=== PATIENT | female | born 1965 | race Caucasian/White ===

== ENCOUNTER 2022-10-24 15:59 | Inpatient (IN) | payer OTHER ==
[2022-10-24] MEDS ORDERED: methylPREDNISolone Sod Succ/PF 125 MG/2 ML VIAL ONE (17:03)
[2022-10-24] MEDS ORDERED: Magnesium 2 GM/50 ML BAG (IN WATER) ONE (17:03)
[2022-10-24 17:11] LABS: #Basophils 0.1 10x3/uL (0.0-0.2); #Eosinphils 0.3 10x3/uL (0.0-0.5); #Neutrophils 5.5 10x3/uL (1.5-8.4); %Basophils 0.7 % (0.0-2.0); %Eosinophils 2.7 % (0.0-6.0); %Lymphocytes 28.1 % (18.0-47.0); %Monocytes 10.6 % (0.0-10.0); %Neutrophils 57.4 % (40.0-75.0); Hemoglobin 14.3 g/dL (12.0-15.5); Mean Corpuscular HGB CONC 33.2 g/dL (32.0-36.0); Mean Corpuscular Hemoglobin 32.8 pg (27.0-33.0); Mean Corpuscular Volume 98.9 fl (81.6-98.3); Mean Platelet Volume 12.1 fl (7.4-10.4); Platelet Count 151 10x3/uL (150-450); RBC Distribution Width 13.6 % (11.5-14.5); Red Blood Cell (RBC) Count 4.36 10x6/uL (3.90-5.03); White Blood Cell (WBC) Count 9.6 10x3/uL (3.5-10.5)
[2022-10-24 17:24] LABS: ALT (SGPT) 33 U/L (8-55); AST (SGOT) 42 U/L (5-34); Albumin 3.9 g/dL (3.5-5.0); Alkaline Phosphatase 121 U/L (40-110); Anion Gap 16 mmol/L (10-20); BUN (Urea Nitrogen) 15 mg/dL (9.8-20.1); Calc. Creatinine Clearance 0 mL/min (70-130); Calcium 9.1 mg/dL (7.8-10.44); Carbon Dioxide 26 mmol/L (22-29); Chloride 100 mmol/L (98-107); Estimated GFR 90; Globulin 3.1 g/dL (2.4-3.5); Glucose 127 mg/dL (70-105); Lipase 10 U/L (8-78); Potassium 4.5 mmol/L (3.5-5.1); Sodium 137 mmol/L (136-145)
[2022-10-24 17:40] LABS: SARS-CoV-2 NAA Rapid Test Not Detected (NotDetected)
[2022-10-24] MEDS ORDERED: Acetaminophen 325 MG TAB PO PRN (17:57)
[2022-10-24] MEDS ORDERED: Ondansetron PF 4 MG/2 ML Vial IVP PRN (17:57)
[2022-10-24] MEDS ORDERED: Ondansetron ODT 4 MG TAB PO PRN (17:57)
[2022-10-24] MEDS ORDERED: Benzonatate 100 MG CAP PO PRN (18:03)
[2022-10-24] MEDS ORDERED: Enoxaparin Sodium 40 MG/0.4 ML SYRINGE SC SCH (22:00)
[2022-10-24] MEDS ORDERED: guaiFENesin ER 600 MG TAB PO SCH (22:00)
[2022-10-25] MEDS ORDERED: methylPREDNISolone Sod Succ 40 MG VIAL ONE ×3 (00:01→12:02)
[2022-10-25] MEDS ORDERED: Nicotine 14 MG PATCH ONE (00:02)
[2022-10-25] MEDS ORDERED: Enoxaparin Sodium 40 MG/0.4 ML SYRINGE ONE (00:02)
[2022-10-25] MEDS: methylPREDNISolone Sod Succ 40 MG VIAL IVP SCH ×4 (00:05→16:55)
[2022-10-25] MEDS: Nicotine 14 MG PATCH TD SCH ×2 (00:05→16:55)
[2022-10-25] MEDS ORDERED: Hydroxychloroquine Sulfate 200 MG TAB PO SCH (01:00)
[2022-10-25] MEDS ORDERED: DULoxetine 30 MG CAP PO SCH (01:00)
[2022-10-25] MEDS ORDERED: Acetaminophen/Codeine 30-300mg Tablet ONE ×2 (01:07→14:12)
[2022-10-25] MEDS: Acetaminophen/Codeine 30-300mg Tablet PO PRN ×2 (01:13→14:22)
[2022-10-25 03:55] LABS: Hemoglobin 14.1 g/dL (12.0-15.5); Mean Corpuscular HGB CONC 33.9 g/dL (32.0-36.0); Mean Corpuscular Hemoglobin 33.1 pg (27.0-33.0); Mean Corpuscular Volume 97.7 fl (81.6-98.3); Mean Platelet Volume 12.1 fl (7.4-10.4); Platelet Count 140 10x3/uL (150-450); RBC Distribution Width 13.3 % (11.5-14.5); Red Blood Cell (RBC) Count 4.26 10x6/uL (3.90-5.03); White Blood Cell (WBC) Count 6.1 10x3/uL (3.5-10.5)
[2022-10-25 04:04] LABS: MDiff Complete? YES; Platelet Morphology Comment Appears Decreased
[2022-10-25 04:14] LABS: Anion Gap 18 mmol/L (10-20); BUN (Urea Nitrogen) 16 mg/dL (9.8-20.1); Calc. Creatinine Clearance 0 mL/min (70-130); Calcium 8.9 mg/dL (7.8-10.44); Carbon Dioxide 21 mmol/L (22-29); Chloride 100 mmol/L (98-107); Estimated GFR 85; Glucose 301 mg/dL (70-105); Potassium 4.7 mmol/L (3.5-5.1); Sodium 134 mmol/L (136-145)
[2022-10-25 04:29] LABS: Band 1 % (5-11); Lymphocytes 21 % (21-51); Monocytes 2 % (0-10); Neutrophil 76 % (42-75)
[2022-10-25] MEDS: DULoxetine 30 MG CAP PO SCH ×2 (09:15→20:45)
[2022-10-25] MEDS: guaiFENesin ER 600 MG TAB PO SCH ×2 (09:15→20:54)
[2022-10-25] MEDS: Hydroxychloroquine Sulfate 200 MG TAB PO SCH ×2 (09:15→20:47)
[2022-10-25 15:03] VITALS: BMI 49.1
[2022-10-25] MEDS ORDERED: ALPRAZolam 1 MG TAB PO SCH (15:30)
[2022-10-25] MEDS ORDERED: Cyclobenzaprine 10 MG TAB PO PRN (15:48)
[2022-10-25] MEDS ORDERED: ALPRAZolam 1 MG TAB PO PRN (15:48)
[2022-10-25] MEDS ORDERED: hydrOXYzine 25 MG TAB PO PRN (15:48)
[2022-10-25] MEDS ORDERED: traMADol HCl 50 MG TAB PO PRN (15:48)
[2022-10-25] MEDS ORDERED: Benzonatate 100 MG CAP PO PRN (16:06)
[2022-10-25] MEDS: Gabapentin 400 MG CAP PO SCH (20:46)
[2022-10-25] MEDS: traZODone HCl 50 MG TAB PO SCH (20:46)
[2022-10-25] MEDS: CeleCOXIB 100 MG CAP PO SCH (20:47)
[2022-10-25] MEDS: Allopurinol 300 MG TAB PO SCH (20:47)
[2022-10-26] MEDS: methylPREDNISolone Sod Succ 40 MG VIAL IVP SCH ×4 (01:51→21:54)
[2022-10-26 05:48] LABS: #Monocytes 0.5 10x3/uL (0.0-1.1); #Neutrophils 9.9 10x3/uL (1.5-8.4); %Basophils 0.1 % (0.0-2.0); %Lymphocytes 9.7 % (18.0-47.0); %Monocytes 3.9 % (0.0-10.0); %Neutrophils 85.9 % (40.0-75.0); Hemoglobin 14.1 g/dL (12.0-15.5); Mean Corpuscular HGB CONC 34.6 g/dL (32.0-36.0); Mean Corpuscular Hemoglobin 33.2 pg (27.0-33.0); Mean Platelet Volume 11.6 fl (7.4-10.4); Platelet Count 180 10x3/uL (150-450); RBC Distribution Width 13.2 % (11.5-14.5); Red Blood Cell (RBC) Count 4.25 10x6/uL (3.90-5.03); White Blood Cell (WBC) Count 11.5 10x3/uL (3.5-10.5)
[2022-10-26 05:49] LABS: Anion Gap 16 mmol/L (10-20); BUN (Urea Nitrogen) 20 mg/dL (9.8-20.1); Calc. Creatinine Clearance 127 mL/min (70-130); Carbon Dioxide 25 mmol/L (22-29); Chloride 99 mmol/L (98-107); Estimated GFR 89; Glucose 298 mg/dL (70-105); Potassium 4.9 mmol/L (3.5-5.1); Sodium 135 mmol/L (136-145)
[2022-10-26] MEDS: CeleCOXIB 100 MG CAP PO SCH ×2 (08:27→21:52)
[2022-10-26] MEDS: Gabapentin 400 MG CAP PO SCH ×3 (08:27→21:53)
[2022-10-26] MEDS: Allopurinol 300 MG TAB PO SCH ×2 (08:28→21:52)
[2022-10-26] MEDS: guaiFENesin ER 600 MG TAB PO SCH ×2 (08:28→21:53)
[2022-10-26] MEDS: Hydroxychloroquine Sulfate 200 MG TAB PO SCH ×2 (08:28→21:53)
[2022-10-26] MEDS: DULoxetine 30 MG CAP PO SCH ×2 (08:28→21:52)
[2022-10-26] MEDS: Nicotine 14 MG PATCH TD SCH (18:09)
[2022-10-26] MEDS: traZODone HCl 50 MG TAB PO SCH (21:53)
[2022-10-27 05:02] LABS: #Monocytes 0.5 10x3/uL (0.0-1.1); #Neutrophils 8.7 10x3/uL (1.5-8.4); %Basophils 0.2 % (0.0-2.0); %Lymphocytes 8.9 % (18.0-47.0); %Monocytes 5.2 % (0.0-10.0); %Neutrophils 84.8 % (40.0-75.0); Hemoglobin 13.4 g/dL (12.0-15.5); Mean Corpuscular HGB CONC 33.6 g/dL (32.0-36.0); Mean Corpuscular Hemoglobin 32.6 pg (27.0-33.0); Mean Corpuscular Volume 97.1 fl (81.6-98.3); Mean Platelet Volume 11.6 fl (7.4-10.4); Platelet Count 190 10x3/uL (150-450); RBC Distribution Width 13.2 % (11.5-14.5); Red Blood Cell (RBC) Count 4.11 10x6/uL (3.90-5.03); White Blood Cell (WBC) Count 10.3 10x3/uL (3.5-10.5)
[2022-10-27 05:09] LABS: Anion Gap 18 mmol/L (10-20); BUN (Urea Nitrogen) 25 mg/dL (9.8-20.1); Calc. Creatinine Clearance 102 mL/min (70-130); Calcium 8.6 mg/dL (7.8-10.44); Carbon Dioxide 23 mmol/L (22-29); Chloride 99 mmol/L (98-107); Estimated GFR 69; Potassium 4.5 mmol/L (3.5-5.1); Sodium 135 mmol/L (136-145)
[2022-10-27 05:11] LABS: Glucose 438 mg/dL (70-105)
[2022-10-27] MEDS ORDERED: Dextrose 5% in Water 1,000 ML IV PRN (08:24)
[2022-10-27] MEDS ORDERED: Dextrose 50% Abboject 50 ML SYRINGE SLOW IVP PRN (08:24)
[2022-10-27] MEDS: Gabapentin 400 MG CAP PO SCH ×3 (09:09→22:08)
[2022-10-27] MEDS: CeleCOXIB 100 MG CAP PO SCH ×2 (09:09→22:07)
[2022-10-27] MEDS: DULoxetine 30 MG CAP PO SCH ×2 (09:10→22:03)
[2022-10-27] MEDS: guaiFENesin ER 600 MG TAB PO SCH ×2 (09:10→22:03)
[2022-10-27] MEDS: Allopurinol 300 MG TAB PO SCH ×2 (09:10→22:03)
[2022-10-27] MEDS: methylPREDNISolone Sod Succ 40 MG VIAL IVP SCH ×2 (09:10→22:02)
[2022-10-27] MEDS: Hydroxychloroquine Sulfate 200 MG TAB PO SCH ×2 (09:10→22:02)
[2022-10-27] MEDS: Lantus 1000 UNITS/10 ML VIAL SC SCH (09:21)
[2022-10-27] MEDS: HumaLOG 300 UNITS/3 ML VIAL SC PRN ×3 (11:59→22:02)
[2022-10-27 13:41] LABS: Hemoglobin A1c 6.2 % (4.0-6.0)
[2022-10-27] MEDS: Nicotine 14 MG PATCH TD SCH (17:52)
[2022-10-27] MEDS: traZODone HCl 50 MG TAB PO SCH (22:03)
[2022-10-28 05:13] LABS: #Monocytes 0.5 10x3/uL (0.0-1.1); #Neutrophils 7.2 10x3/uL (1.5-8.4); %Basophils 0.2 % (0.0-2.0); %Lymphocytes 11.9 % (18.0-47.0); %Neutrophils 80.3 % (40.0-75.0); Hemoglobin 13.8 g/dL (12.0-15.5); Mean Corpuscular HGB CONC 34.2 g/dL (32.0-36.0); Mean Corpuscular Hemoglobin 32.7 pg (27.0-33.0); Mean Corpuscular Volume 95.5 fl (81.6-98.3); Mean Platelet Volume 11.2 fl (7.4-10.4); Platelet Count 194 10x3/uL (150-450); RBC Distribution Width 13.2 % (11.5-14.5); Red Blood Cell (RBC) Count 4.22 10x6/uL (3.90-5.03)
[2022-10-28 05:29] LABS: Anion Gap 13 mmol/L (10-20); BUN (Urea Nitrogen) 29 mg/dL (9.8-20.1); Calc. Creatinine Clearance 121 mL/min (70-130); Calcium 8.5 mg/dL (7.8-10.44); Carbon Dioxide 28 mmol/L (22-29); Chloride 100 mmol/L (98-107); Estimated GFR 84; Glucose 307 mg/dL (70-105); Potassium 4.5 mmol/L (3.5-5.1); Sodium 136 mmol/L (136-145)
[2022-10-28] MEDS: HumaLOG 300 UNITS/3 ML VIAL SC PRN ×2 (06:54→15:08)
[2022-10-28] MEDS: Allopurinol 300 MG TAB PO SCH (09:47)
[2022-10-28] MEDS: methylPREDNISolone Sod Succ 40 MG VIAL IVP SCH (09:47)
[2022-10-28] MEDS: DULoxetine 30 MG CAP PO SCH (09:48)
[2022-10-28] MEDS: Acetaminophen/Codeine 30-300mg Tablet PO PRN (09:48)
[2022-10-28] MEDS: Gabapentin 400 MG CAP PO SCH ×2 (09:48→15:09)
[2022-10-28] MEDS: Hydroxychloroquine Sulfate 200 MG TAB PO SCH (09:50)
[2022-10-28] MEDS: Lantus 1000 UNITS/10 ML VIAL SC SCH (09:50)
[2022-10-28] MEDS: CeleCOXIB 100 MG CAP PO SCH (10:57)
[2022-10-28] MEDS: guaiFENesin ER 600 MG TAB PO SCH (10:57)
[2022-10-28 16:40] VITALS: BP 140/72; TEMP 98.2
== END 2022-10-28 17:00 | disposition home or self-care (01) | DRG 189 ==
LOC: CSHERS 15:59 → CSHERHOLD 21:48 → CSHTELE 10-25 14:55 → OBSVTOIN 10-26 10:19
PROVIDERS: ADMIT Family Medicine; ATTEND Family Medicine
DX: J96.01 Acute respiratory failure with hypoxia (principal); J44.1 Chronic obstructive pulmonary disease with (acute) exacerbation; F17.210 Nicotine dependence, cigarettes, uncomplicated; M06.9 Rheumatoid arthritis, unspecified; G25.81 Restless legs syndrome; F41.9 Anxiety disorder, unspecified; F32.A Depression, unspecified; Z20.822 Contact with and (suspected) exposure to COVID-19; M32.9 Systemic lupus erythematosus, unspecified; M79.7 Fibromyalgia; R73.9 Hyperglycemia, unspecified; Z90.49 Acquired absence of other specified parts of digestive tract; Z98.890 Other specified postprocedural states; Z88.0 Allergy status to penicillin; Z88.2 Allergy status to sulfonamides; Z91.040 Latex allergy status; Z79.899 Other long term (current) drug therapy
CPT/HCPCS: 36415; 36416; 71045; 80048; 80053; 83036; 83605; 83690; 83880; 84484; 85025; 87040; 93005; 94640; 94760; 96372; 96374; 96375; 96376; G0378; J1650; J1815; J1956; J2920; J2930; J3475; J7620

== ENCOUNTER 2023-08-17 16:21 | Emergency (ER) | payer OTHER, SELFPAY ==
[2023-08-17 17:25] LABS: #Basophils 0.1 10x3/uL (0.0-0.2); #Eosinphils 0.1 10x3/uL (0.0-0.5); #Monocytes 0.9 10x3/uL (0.0-1.1); #Neutrophils 5.4 10x3/uL (1.5-8.4); %Basophils 0.5 % (0.0-2.0); %Eosinophils 1.3 % (0.0-6.0); %Lymphocytes 29.3 % (18.0-47.0); %Monocytes 9.9 % (0.0-10.0); %Neutrophils 58.7 % (40.0-75.0); Hematocrit 37.8 % (34.9-44.5); Hemoglobin 12.7 g/dL (12.0-15.5); Mean Corpuscular HGB CONC 33.6 g/dL (32.0-36.0); Mean Corpuscular Hemoglobin 32.2 pg (27.0-33.0); Mean Corpuscular Volume 95.9 fl (81.6-98.3); Mean Platelet Volume 10.4 fl (7.4-10.4); Platelet Count 269 10x3/uL (150-450); RBC Distribution Width 12.3 % (11.5-14.5); Red Blood Cell (RBC) Count 3.94 10x6/uL (3.90-5.03); White Blood Cell (WBC) Count 9.2 10x3/uL (3.5-10.5)
[2023-08-17 17:37] LABS: ALT (SGPT) 21 U/L (8-55); AST (SGOT) 22 U/L (5-34); Albumin 3.6 g/dL (3.5-5.0); Alkaline Phosphatase 135 U/L (40-110); Anion Gap 17 mmol/L (10-20); BUN (Urea Nitrogen) 5 mg/dL (9.8-20.1); Bilirubin, Total 0.5 mg/dL (0.2-1.2); Calc. Creatinine Clearance 0 mL/min (70-130); Carbon Dioxide 32 mmol/L (22-29); Chloride 96 mmol/L (98-107); Estimated GFR 101; Globulin 2.7 g/dL (2.4-3.5); Glucose 109 mg/dL (70-105); Potassium 4.1 mmol/L (3.5-5.1); Protein, Total 6.3 g/dL (6.0-8.3); Sodium 141 mmol/L (136-145); Troponin I Less than 0.010 ng/mL (< 0.028)
[2023-08-17] MEDS ORDERED: Ipratropium/Albuterol 3 ML NEB ONE (17:37)
[2023-08-17 18:07] LABS: Actual Bicarbonate (HCO3v) 31.3 mEq/L (22-28); Base Excess 6.2 mEq/L (-2 - +2); Calcium, Ionized (venous) 1.04 mmol/L (1.16-1.32); Chloride (VBG) 97 mmol/L (98-106); Hematocrit-VBG 41 % (36.0-47.0); Hemoglobin (Hb) 14.1 g/dL (11.7-16.0); Puncture Site Other Site; RapidComm Collect By LAB; Sodium 137 mmol/L (133-146); pH (venous) 7.446 (7.32-7.43)
== END 2023-08-17 19:00 | disposition home or self-care (01) ==
LOC: CSHERS 16:21
DX: J18.9 Pneumonia, unspecified organism (principal); J44.9 Chronic obstructive pulmonary disease, unspecified; F17.210 Nicotine dependence, cigarettes, uncomplicated
CPT/HCPCS: 36415; 71045; 80053; 82805; 83605; 83880; 84484; 85025; 87040; 93005; J7620

== ENCOUNTER 2023-08-21 16:58 | Emergency (ER) | payer SELFPAY | END 2023-08-21 21:03 | disposition home or self-care (01) | LOC: CSHERS 16:58 | DX: J18.9 Pneumonia, unspecified organism (principal); J06.9 Acute upper respiratory infection, unspecified; Z16.29 Resistance to other single specified antibiotic; F17.210 Nicotine dependence, cigarettes, uncomplicated; J44.9 Chronic obstructive pulmonary disease, unspecified | CPT/HCPCS: 71046 ==

== ENCOUNTER 2023-08-27 23:32 | Emergency (ER) | payer SELFPAY ==
[2023-08-28] MEDS ORDERED: Morphine 4 MG/ML VIAL ONE ×2 (00:53→02:27)
[2023-08-28 01:34] LABS: Bilirubin 1+ (Negative); Blood, Urine 10 (Negative); Clarity Clear (Clear); Glucose, Urine (Dipstick) Normal (Negative); Ketone, Urine 5 mg/dL (Negative); Leukocyte 25 (Negative); Nitrite Negative (Negative); Protein, Urine (Dipstick) 30 mg/dl (Neg-Trace)
[2023-08-28 01:38] LABS: #Basophils 0.1 10x3/uL (0.0-0.2); #Eosinphils 0.1 10x3/uL (0.0-0.5); #Monocytes 1.3 10x3/uL (0.0-1.1); #Neutrophils 10.2 10x3/uL (1.5-8.4); %Basophils 0.6 % (0.0-2.0); %Eosinophils 0.5 % (0.0-6.0); %Lymphocytes 17.6 % (18.0-47.0); %Monocytes 9.2 % (0.0-10.0); %Neutrophils 71.7 % (40.0-75.0); Mean Corpuscular HGB CONC 33.3 g/dL (32.0-36.0); Mean Corpuscular Hemoglobin 31.8 pg (27.0-33.0); Mean Corpuscular Volume 95.5 fl (81.6-98.3); Mean Platelet Volume 11.2 fl (7.4-10.4); Platelet Count 351 10x3/uL (150-450); RBC Distribution Width 12.7 % (11.5-14.5); White Blood Cell (WBC) Count 14.3 10x3/uL (3.5-10.5)
[2023-08-28 01:48] LABS: CAUTI Indications for Culture Pelvic or flank pain; RBC/HPF 0-3 HPF (0-3)
[2023-08-28 01:51] LABS: Bacteria/HPF 1+ HPF (None Seen)
[2023-08-28 01:52] LABS: Urine Culture Reflex No No
[2023-08-28 01:59] LABS: Troponin I Less than 0.010 ng/mL (< 0.028)
[2023-08-28 02:49] LABS: ALT (SGPT) 15 U/L (8-55); AST (SGOT) 17 U/L (5-34); Albumin 3.4 g/dL (3.5-5.0); Alkaline Phosphatase 123 U/L (40-110); Anion Gap 16 mmol/L (10-20); BUN (Urea Nitrogen) 8 mg/dL (9.8-20.1); Bilirubin, Total 0.5 mg/dL (0.2-1.2); Calc. Creatinine Clearance 0 mL/min (70-130); Calcium 9.8 mg/dL (7.8-10.44); Carbon Dioxide 29 mmol/L (22-29); Chloride 97 mmol/L (98-107); Estimated GFR 89; Globulin 3.5 g/dL (2.4-3.5); Glucose 152 mg/dL (70-105); Lipase 14 U/L (8-78); Potassium 3.9 mmol/L (3.5-5.1); Protein, Total 6.9 g/dL (6.0-8.3); Sodium 138 mmol/L (136-145)
[2023-08-28] MEDS ORDERED: Ipratropium/Albuterol 3 ML NEB ONE (05:05)
[2023-08-28] MEDS ORDERED: Diazepam 10 MG/2 ML SYRINGE ONE (05:21)
== END 2023-08-28 06:05 | disposition home or self-care (01) ==
LOC: CSHERS 23:32
DX: R06.00 Dyspnea, unspecified (principal); M62.838 Other muscle spasm; J44.9 Chronic obstructive pulmonary disease, unspecified; F17.210 Nicotine dependence, cigarettes, uncomplicated
CPT/HCPCS: 71045; 74177; 80053; 81001; 83605; 83690; 84484; 85025; 93005; 96374; 96375; 96376; J2270; J3360; J7611; J7620

== ENCOUNTER 2023-09-25 12:23 | Emergency (ER) | payer OTHER ==
[2023-09-25 13:29] LABS: #Basophils 0.1 10x3/uL (0.0-0.2); #Eosinphils 0.2 10x3/uL (0.0-0.5); #Monocytes 0.9 10x3/uL (0.0-1.1); #Neutrophils 5.3 10x3/uL (1.5-8.4); %Basophils 0.7 % (0.0-2.0); %Eosinophils 2.1 % (0.0-6.0); %Lymphocytes 27.4 % (18.0-47.0); %Neutrophils 59.5 % (40.0-75.0); Hematocrit 42.9 % (34.9-44.5); Hemoglobin 13.9 g/dL (12.0-15.5); Mean Corpuscular HGB CONC 32.4 g/dL (32.0-36.0); Mean Corpuscular Hemoglobin 31.6 pg (27.0-33.0); Mean Corpuscular Volume 97.5 fl (81.6-98.3); Mean Platelet Volume 11.2 fl (7.4-10.4); Platelet Count 305 10x3/uL (150-450); RBC Distribution Width 13.2 % (11.5-14.5); White Blood Cell (WBC) Count 8.9 10x3/uL (3.5-10.5)
[2023-09-25] MEDS ORDERED: Ketorolac Tromethamine 30 MG/ML VIAL ONE (14:13)
[2023-09-25 14:18] LABS: #Basophils 0.1 10x3/uL (0.0-0.2); #Eosinphils 0.2 10x3/uL (0.0-0.5); #Monocytes 0.9 10x3/uL (0.0-1.1); #Neutrophils 5.5 10x3/uL (1.5-8.4); %Basophils 0.8 % (0.0-2.0); %Eosinophils 2.4 % (0.0-6.0); %Lymphocytes 26.6 % (18.0-47.0); %Neutrophils 59.9 % (40.0-75.0); Hematocrit 40.8 % (34.9-44.5); Hemoglobin 13.1 g/dL (12.0-15.5); Mean Corpuscular HGB CONC 32.1 g/dL (32.0-36.0); Mean Corpuscular Hemoglobin 31.3 pg (27.0-33.0); Mean Corpuscular Volume 97.4 fl (81.6-98.3); Mean Platelet Volume 10.9 fl (7.4-10.4); Platelet Count 253 10x3/uL (150-450); RBC Distribution Width 13.2 % (11.5-14.5); Red Blood Cell (RBC) Count 4.19 10x6/uL (3.90-5.03); White Blood Cell (WBC) Count 9.2 10x3/uL (3.5-10.5)
[2023-09-25 14:42] LABS: ALT (SGPT) 22 U/L (8-55); AST (SGOT) 22 U/L (5-34); Albumin 3.7 g/dL (3.5-5.0); Alkaline Phosphatase 156 U/L (40-110); Anion Gap 14 mmol/L (10-20); BUN (Urea Nitrogen) 6 mg/dL (9.8-20.1); Bilirubin, Total 0.5 mg/dL (0.2-1.2); Calc. Creatinine Clearance 0 mL/min (70-130); Calcium 9.5 mg/dL (7.8-10.44); Carbon Dioxide 29 mmol/L (22-29); Chloride 99 mmol/L (98-107); Estimated GFR 101; Globulin 3.8 g/dL (2.4-3.5); Glucose 98 mg/dL (70-105); Potassium 4.5 mmol/L (3.5-5.1); Protein, Total 7.5 g/dL (6.0-8.3); Sodium 137 mmol/L (136-145)
[2023-09-25 14:48] LABS: Bilirubin Neg (Negative); Blood, Urine Negative (Negative); Clarity Clear (Clear); Glucose, Urine (Dipstick) Normal (Negative); Ketone, Urine Negative (Negative); Leukocyte Negative (Negative); Nitrite Negative (Negative); Protein, Urine (Dipstick) Negative (Neg-Trace); Urobilinogen Normal mg/dL (Less than 2)
[2023-09-25 15:00] LABS: Lipase 17 U/L (8-78)
[2023-09-25 15:02] LABS: Bacteria/HPF None Seen HPF (None Seen); CAUTI Indications for Culture Pelvic or flank pain; RBC/HPF None Seen HPF (0-3); Squamous Epithelial None Seen HPF (0-3); WBC/HPF None Seen HPF (0-3)
[2023-09-25 15:03] LABS: Urine Culture Reflex No No
== END 2023-09-25 16:00 | disposition home or self-care (01) ==
LOC: CSHERS 12:23
DX: K76.89 Other specified diseases of liver (principal); J44.9 Chronic obstructive pulmonary disease, unspecified; F17.210 Nicotine dependence, cigarettes, uncomplicated
CPT/HCPCS: 36415; 80053; 81001; 83690; 85025; 96374; J1885